=== PATIENT | male | born 1965 | race Hispanic/Latino ===

== ENCOUNTER 2016-08-09 14:53 | Emergency (ER) | payer OTHER, MEDICAID ==
[2016-08-09 15:01] VITALS: BP 136/81; PULSE 77; RESP 20; TEMP 97.6; O2SAT 98
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
--- NOTE | 2016-08-09 16:05 | CT ---
PROCEDURE: CT Cervical Spine without contrast HISTORY: Neck pain. COMPARISON: None available. TECHNIQUE: Axial computed tomography images were obtained of the cervical spine without the use of intravenous contrast. Coronal and sagittal reformatted images were created and reviewed. Radiation dose: Total exam DLP = 521.67 mGy-cm. This CT was performed using one or more of the following dose reduction techniques: Automated exposure control, adjustment of the mA and/or KV according to patient size, and/or use of iterative reconstruction technique. FINDINGS: VERTEBRAE: No fracture. Normal alignment. No destructive bony lesion. Straightening of the normal cervical curvature which could be due to patient positioning or muscle spasm. DISCS/SPINAL CANAL/NEURAL FORAMINA: Mild posterior disc protrusion with an osteophyte complex at C6-C7.Mild loss of intervertebral disc space at C6-C7. Mild facet hypertrophy. PARASPINAL SOFT TISSUES: Unremarkable. OTHER FINDINGS: Biapical pleural parenchymal thickening noted. IMPRESSION: No evidence of acute fracture. Mild degenerative changes.
--- NOTE | 2016-08-09 16:13 | RAD ---
PROCEDURE: Right hand Radiographs. HISTORY: trauma attn fifth digit COMPARISON: None. FINDINGS: BONES: No definite fracture. JOINTS: Normal. No dislocation. SOFT TISSUES: Normal. OTHER FINDINGS: None. IMPRESSION: No definite fracture
== END 2016-08-09 17:20 | disposition home or self-care (01) ==
LOC: H.ER 14:53
DX: S19.9XXA Unspecified injury of neck, initial encounter (principal); S69.91XA Unspecified injury of right wrist, hand and finger(s), initial encounter; V89.2XXA Person injured in unspecified motor-vehicle accident, traffic, initial encounter; Y92.410 Unspecified street and highway as the place of occurrence of the external cause